=== PATIENT | female | born 1995 ===

== ENCOUNTER 2018-08-27 13:59 | Emergency (ER) | payer OTHER ==
[2018-08-27 14:00] VITALS: BMI 30.1
[2018-08-27 14:57] VITALS: O2SAT 99
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
[2018-08-27 19:02] VITALS: BP 117/76; PULSE 84; RESP 20; TEMP 97.6
== END 2018-08-27 19:22 | disposition home or self-care (01) ==
LOC: ED 13:59
DX: S09.90XA Unspecified injury of head, initial encounter (principal); S13.4XXA Sprain of ligaments of cervical spine, initial encounter; Y09 Assault by unspecified means; R68.84 Jaw pain